=== PATIENT | male | born 1955 | race Caucasian/White ===

== ENCOUNTER → 2020-08-20 | Outpatient (CLI) | payer MEDICARE, OTHER ==
[~2020-08-20] MED LIST: AMLODIPINE BESY10 MG PO; ENDOCET 10-3251 EACH PO; HYDROCHLOROTH12.5 MG PO; HYDROCODON-ACE1 EAC2 PO; LISINOPRIL40 MG PO; LO-DOSE ASPIRIN81 MG PO; MULTI COMPLETE1 EACH PO; ROBAXIN 750 MG750 MG PO; SINEQUAN CAP 2525 MG PO; VITAMIN D21250 MCG PO
[2020-08-20 10:10] LABS: HEMOGLOBIN 12.8 gm/dl (14.0-17.5); RED BLOOD COUNT 4.28 M/UL (4.20-5.50); WHITE BLOOD COUNT 4.5 K/UL (4.5-11.0)
[2020-08-20 10:55] LABS: BUN/CREATININE RATIO 24 (0-10)
== END ==
LOC: OPSV2 08:57 → EDSTATUS 09:00 → OPSV2 09:00
PROVIDERS: Orthopaedic Surgery
DX: Z01.818 Encounter for other preprocedural examination (principal); M19.012 Primary osteoarthritis, left shoulder
CPT/HCPCS: 36415; 80048; 85027; 87081; 93005

== ENCOUNTER 2020-08-31 08:00 | Day surgery (SDC) | payer BC, MEDICARE, OTHER ==
[~2020-08-31] VITALS: Ht 185.4 cm; Wt 103.0 kg
[~2020-08-31 08:00] MED LIST changes: -ENDOCET 10-3251 EACH PO; -LO-DOSE ASPIRIN81 MG PO; -MULTI COMPLETE1 EACH PO
[2020-08-31] MEDS ORDERED: ENDOCET 10-3251 EACH PO (14:49)
[2020-08-31] MEDS ORDERED: LO-DOSE ASPIRIN81 MG PO (18:27)
[2020-08-31] MEDS ORDERED: MULTI COMPLETE1 EACH PO (18:28)
[2020-09-01 03:07] LABS: HEMOGLOBIN 11.8 gm/dl (14.0-17.5); RED BLOOD COUNT 3.94 M/UL (4.20-5.50); WHITE BLOOD COUNT 10.7 K/UL (4.5-11.0)
[2020-09-01 03:33] LABS: BUN/CREATININE RATIO 20 (0-10)
[2020-09-02 03:21] LABS: HEMOGLOBIN 11.5 gm/dl (14.0-17.5); RED BLOOD COUNT 3.85 M/UL (4.20-5.50); WHITE BLOOD COUNT 9.1 K/UL (4.5-11.0)
[2020-09-02 03:37] LABS: BUN/CREATININE RATIO 16 (0-10)
== END 2020-09-02 16:10 | disposition home or self-care (01) ==
LOC: OR 08:00 → M/S 18:10 → OR 20:45 → M/S 20:45 → OR 20:46 → M/S 09-02 16:10 → OR 09-02 16:10
PROVIDERS: Orthopaedic Surgery
PROC: 0RRK0JZ Replacement of Left Shoulder Joint with Synthetic Substitute, Open Approach (ICD-10-PCS; principal; 2020-08-31 15:00)
DX: M19.012 Primary osteoarthritis, left shoulder (principal); E87.1 Hypo-osmolality and hyponatremia; I10 Essential (primary) hypertension; E78.5 Hyperlipidemia, unspecified; K21.9 Gastro-esophageal reflux disease without esophagitis; Z79.899 Other long term (current) drug therapy; Z79.82 Long term (current) use of aspirin
CPT/HCPCS: 73020; 80048; 85027; 97116-GP-CQ; 97161; 97166; 97535; C1776; J0690; J1100; J1885; J2250; J2270; J2405; J2704; J2710; J2795; J3010; J3370; J7120

== ENCOUNTER → 2021-04-06 | Outpatient (CLI) | payer MEDICARE ==
[~2021-04-06] MED LIST changes: +ENDOCET 10-3251 EACH PO; +FISH OIL 1,0001 EAC1 PO; +GLUCOSAMINE1000 MG PO; +HYDROCODON-ACE1 EAC6 PO; +LO-DOSE ASPIRIN81 MG PO; +MULTI COMPLETE1 EACH PO; +TYLENOL ARTHRITIS PO
[2021-04-06 12:33] LABS: HEMOGLOBIN 13.7 gm/dl (14.0-17.5); RED BLOOD COUNT 4.68 M/UL (4.20-5.50); WHITE BLOOD COUNT 5.8 K/UL (4.5-11.0)
[2021-04-06 12:53] LABS: BUN/CREATININE RATIO 20 (0-10)
== END ==
LOC: EDSTATUS 11:30 → OPSV2 11:30
PROVIDERS: Orthopaedic Surgery
DX: Z01.818 Encounter for other preprocedural examination (principal); I10 Essential (primary) hypertension
CPT/HCPCS: 36415; 80048; 85027; 93005

== ENCOUNTER → 2021-04-21 | Day surgery (SDC) | payer MEDICARE ==
[~2021-04-21] VITALS: Ht 185.4 cm; Wt 108.4 kg
[~2021-04-21] MED LIST changes: +ASPIRIN EC81 MG PO; +CYCLOBENZAPRINE10 MG PO; +ENDOCET 7.5-321 EACH PO; +SIMVASTATIN PO; +ZETIA10 MG PO; +ZOFRAN 4 MG TAB4 MG PO
== END | disposition home or self-care (01) ==
LOC: OR 06:00
DX: M19.011 Primary osteoarthritis, right shoulder (principal); M75.101 Unspecified rotator cuff tear or rupture of right shoulder, not specified as traumatic; I10 Essential (primary) hypertension; E78.5 Hyperlipidemia, unspecified; K21.9 Gastro-esophageal reflux disease without esophagitis; M51.36 Other intervertebral disc degeneration, lumbar region; F12.929 Cannabis use, unspecified with intoxication, unspecified; Z79.82 Long term (current) use of aspirin; Z79.899 Other long term (current) drug therapy; Z96.612 Presence of left artificial shoulder joint
CPT/HCPCS: 73020; C1713; C1776; J0171; J0690; J1100; J2001; J2370; J2405; J2704; J2795; J3010; J3370; J7120